=== PATIENT | female | born 1990 | race Caucasian/White ===

== ENCOUNTER 2017-12-21 15:58 | Emergency (ER) | payer BC | END 2017-12-21 16:35 | disposition home or self-care (01) | LOC: BURERS 15:58 | DX: O9A.219 Injury, poisoning and certain other consequences of external causes complicating pregnancy, unspecified trimester (principal); Z04.3 Encounter for examination and observation following other accident; W01.0XXA Fall on same level from slipping, tripping and stumbling without subsequent striking against object, initial encounter; Z3A.00 Weeks of gestation of pregnancy not specified | CPT/HCPCS: 99283 ==